=== PATIENT | female | born 1950 | race Caucasian/White ===

== ENCOUNTER 2018-05-29 15:32 | Emergency (ER) | payer OTHER ==
--- NOTE | 2018-05-29 15:33 | PDOC ---
History of Present Illness - General History Source: Patient Exam Limitations: No Limitations - History of Present Illness Initial Comments: 67 yo F w a pmh of Crohns on [place], HTN presents to the ER s/p falling down and hitting the back of her head and butt. She reports that she heard how when older people fall they need to come to the ED to make sure they are not bleeding in their head. She states that she was walking in to her house from the driveway when she tripped on a rock, fell backward and landed on her head. She admits to significant pain at the time of the event and states she heard a crack. She denies taking blood thinners or experiencing any LOC. She says she had no prodromal symptoms before the fall such as lightheadedness, palpitations , chest pain, SOB, or difficutly breathing. After the fall she took two 650 Mg tylenol pills orally for pain control. She denies recent fevers, chills, infections, headache, neck pain, blurry vision , chest pain, SOB, difficulty breathing, back pain, abdominal pain, diarrhea, constipation, numbness, tingling, weakness, dysuria, frequency, or urgency. PCP: Rory Simmons PSH: Appendectomy at age 6, Benign facial tumor removal Allergies: NKA, NKDA Social Hx: Denies smoking, drinking, or other substance usage. <Clayton Ivory - Last Filed: 05/29/18 17:15> <Inge Reis - Last Filed: 05/29/18 17:30> - General Chief Complaint: Injury Stated Complaint: FALL Time Seen by Provider: 05/29/18 15:32 Past History - Past Medical History Anemia: Yes Asthma: No Cancer: No Cardiac Disorders: No COPD: No CHF: No GI Disorders: Yes (BLEEDING ULCER 2013) HTN: Yes - Surgical History Abdominal Surgery: No Appendectomy: Yes Cardiac Surgery: No Lung Surgery: No Neurologic Surgery: No - Suicide/Smoking/Psychosocial Hx Smoking History: Current some day smoker Have you smoked in the past 12 months: Yes Number of Cigarettes Smoked Daily: 10 'Breaking Loose' booklet given: 01/22/16 Hx Alcohol Use: No Drug/Substance Use Hx: No Substance Use Type: None <Clayton Ivory - Last Filed: 05/29/18 17:15> <Inge Reis - Last Filed: 05/29/18 17:30> - Past Medical History Allergies/Adverse Reactions: Allergies Allergy/AdvReac Type Severity Reaction Status Date / Time No Known Drug Allergies Allergy Verified 05/29/18 15:44 Home Medications: Ambulatory Orders Omeprazole [Prilosec (RX)] 40 mg PO DAILY 01/03/14 Adalimumab [Humira] 0 mg SQ WEEKLY 05/29/18 Review of Systems - Review of Systems Able to Perform ROS?: Yes Comments:: CONSTITUTIONAL: Absent: fever, no chills, no fatigue EYES: Absent: visual changes ENT: Absent: ear pain, no sore throat CARDIOVASCULAR: Absent: chest pain, no palpitations RESPIRATORY: Absent: cough, no SOB GI: Absent: abdominal pain, no nausea, no vomiting, no constipation, no diarrhea GENITOURINARY: Absent: dysuria, no frequency, no hematuria MUSKULOSKELETAL: Absent: back pain, no arthralgia, no myalgia SKIN: Absent: rash NEURO: Absent: headache <Clayton Ivory - Last Filed: 05/29/18 17:15> *Physical Exam - Physical Exam Comments: GENERAL: Well-appearing, well-nourished. No apparent distress. HEENT: Mild 1 cm abrasion on occipital bone. Small hematoma, not TTP. No open wound. Normocephalic. PERRL, EOM intact. CARDIOVASCULAR: Normal S1, S2. Regular rate and rhythm. PULMONARY: No evidence of respiratory distress. Lungs clear to auscultation bilaterally. No wheezing, rales or rhonchi. ABDOMEN: Soft, non-distended, non-tender. EXTREMITIES: Normal ROM in all four extremities. No gross deformities. SKIN: Warm, dry. No rash NEUROLOGICAL: No focal neurological deficits. <Clayton Ivory - Last Filed: 05/29/18 17:15> - Vital Signs Last Vital Signs Temp Pulse Resp BP Pulse Ox 98.2 F 77 18 159/76 100 05/29/18 15:32 05/29/18 15:32 05/29/18 15:32 05/29/18 15:32 05/29/18 15:32 <Inge Reis - Last Filed: 05/29/18 17:30> Moderate Sedation - Procedure Monitoring Vital Signs: Procedure Monitoring Vital Signs Temperature 98.2 F 02/09/19 15:32 Pulse Rate 77 05/29/18 15:32 Respiratory Rate 18 05/29/18 15:32 Blood Pressure 159/76 05/29/18 15:32 O2 Sat by Pulse Oximetry (%) 100 05/29/18 15:32 <SmileyIngedora Muhammad - Last Filed: 05/29/18 17:30> ED Treatment Course - LABORATORY CBC & Chemistry Diagram: 05/29/18 16:10 05/29/18 16:10 <Clayton Ivory - Last Filed: 05/29/18 17:15> - LABORATORY CBC & Chemistry Diagram: 05/29/18 16:10 05/29/18 16:10 - RADIOLOGY Radiology Studies Ordered: Category Date Time Status CERVICAL SPINE CT W/O CONTR [CT] Stat CT Scan 05/29/18 15:[address] WITHOUT CONTRAST [CT] Stat CT Scan 05/29/18 15:35 Completed <Inge Reis - Last Filed: 05/29/18 17:30> Medical Decision Making - Medical Decision Making 67 yo F w a pmh of Crohns on [facility], HTN presents to the ER s/p falling down and hitting the back of her head and butt. She reports that she heard how when older people fall they need to come to the ED to make sure they are not bleeding in their head. She states that she was walking in to her house from the driveway when she tripped on a rock, fell backward and landed on her head. She admits to significant pain at the time of the event and states she heard a crack. She denies taking blood thinners or experiencing any LOC. She says she had no prodromal symptoms before the fall such as lightheadedness, palpitations , chest pain, SOB, or difficutly breathing. After the fall she took two 650 Mg tylenol pills orally for pain control. - VSS - No LOC, no blood thinners, appears to be a mechanical fall. DDx IBNLT: Subdural vs epidural vs SAH vs intracerebral hemorrhage, CVA/TIA, arrhythmia, syncope, ACS/WI, vertebral fx Plan: Cbc, bmp, Head/neck ct, lumb/sacral/pelvis X-rays, EKG, re-assess. EKG normal sinus, possible peaked T waves. CT and Xr showed no acute fractures or bleeds. Will DC patient with return precautions and PCP fu <Clayton Ivory - Last Filed: 05/29/18 17:15> - Medical Decision Making ECG NSR, normal segments and intervals. no ST or T wave segment abnormalities, see attestation. no symptoms and no electrolyte derangements to suggest pathology or electrolyte derangements. 05/29/18 17:29 <Inge Reis - Last Filed: 05/29/18 17:30> *DC/Admit/Observation/Transfer - Discharge Dispostion Decision to Admit order: No <CachorroClayton - Last Filed: 05/29/18 17:15> <Inge Reis - Last Filed: 05/29/18 17:30> Diagnosis at time of Disposition: Fall Contusion of scalp Qualifiers: Encounter type: initial encounter Qualified Code(s): S00.03XA - Contusion of scalp, initial encounter - Discharge Dispostion Disposition: HOME Condition at time of disposition: Improved - Referrals Referrals: Rory Carrillo MD [Primary Care Provider] - - Patient Instructions Printed Discharge Instructions: DI for Contusion, How to Prevent Falls, DI for Closed Head Injury Additional Instructions: FALL PREVENTION AT HOME WHAT YOU NEED TO KNOW There are many different factors that can increase your risk of falls. Falls can happen any time, but the majority of them occur in the home. Fall prevention includes ways to make your home and other areas safer. It also includes ways you can move more carefully to prevent a fall. Health conditions that cause changes in your blood pressure, vision, or muscle strength and coordination may increase your risk for falls. Medicines, including anesthesia, may increase your risk for falls if they make you dizzy, weak, or sleepy. FALL PREVENTION TIPS Stand or sit up slowly. This may help you keep your balance and prevent falls. Do not walk and talk at the same time. Concentrate on the task of walking and continue the conversation after you've reached a safe place. Wear shoes that fit well and have soles that switchboard clerk. Wear shoes both inside and outside. Use slippers with good switchboard clerk. Avoid shoes with high heels. Use assistive devices as directed. Your healthcare provider may suggest that you use a cane or walker to help you keep you balance. Be sure you have adequate lighting throughout your house. Keep paths clear. Remove books, shoes and other objects from walkways and stairs. Keep cords for telephones and lamps out of the way so you dont need to walk over them. Remove small rugs or secure them with double-sided tape. This will prevent you from tripping. Use a nightlight when getting out of bed at night. Stay active to maintain overall strength and endurance. Know your limitations. If there is a task you can not complete with ease, do not risk a fall by trying to complete it. Call 911 or have someone else call if: You have fallen and are unconscious You have fallen and cannot move part of your body Contact your healthcare provider if: You have fallen and have pain or a headache You have questions or concerns about your condition or care. Print Language: FRENCH - Post Discharge Activity
--- NOTE | 2018-05-29 15:34 | PDOC ---
Attending Attestation - Resident Resident Name: Clayton Ivory - ED Attending Attestation I have performed the following: I have examined & evaluated the patient, The case was reviewed & discussed with the resident, I agree w/resident's findings & plan - HPI HPI: 05/29/18 16:26 67 yo F w a pmh of Crohns on [place], HTN presents to the ER s/p falling down and hitting the back of her head and butt s/p trip and fall over rock when she was coming down the driveway. no LOC, mild headache initially. no gait changes, vomiting, visual or hearing changes or confusion. also notes lower back pain at the tailbone where she landed. - Physicial Exam PE: 05/29/18 17:25 General: GCS 15 NAD, well appearing HEENT: +occipital scalp hematoma, superficial abrasion, nonbleeding. PERRL, EOMI. Dentition intact. nasal bridge stable. Neck: neck supple, no midline C spine tenderness or deformity, ROM intact. No anterior mass or crepitus, trachea midline. Resp: Lungs clear bilaterally Chest: no clavicle or chest wall tenderness or crepitus CVS: RRR, 2+ pulses throughout. Abdomen: Abdomen soft, nontender, nondistended. Back: Back nontender, no midline spinal tenderness along cervical/thoracic/ lumbar spine, FROM, no stepoffs. MSK: Pelvis stable, Extremities symmetric, no focal areas of tenderness or deformities, proximal and distally; no pain on axial loading. FROM in all extrem. +left lateral buttock TTP without ecchymosis or hematoma or discoloration. Neuro: Alert, oriented appropriately. CN II-XII grossly symmetric and intact. no focal neuro deficits. Sensation and strength intact throughout. Gait normal/ stable. Skin: intact, normal color and well perfused. - Medical Decision Making 05/29/18 17:26 hpi as documented, VS wnl, reviewed. Trauma ddx: ICH, SDH, EDH, C spine injury/fx, pelvis fracture. MSK contusion. , scalp contusion/hematoma. lumbosacral fx/compression fx. tailbone fx. buttock contusion; Intra abdominal and thoracic injuries, bleed - doubt clinically based on history and physical. no syncope. no cp or sob or dizziness or neuro changes. CT head neg for acute pathology/bleed CT c spine with neg fx/subluxation. degenerative changes noted ECG NSR, no arrhythmia or ischemia. normal sinus rhythm. labs and lytes normal no prodromal sx to suggest pathology or precipitating factors. Xray neg for acute fx, with good alignment of lumbosacral spine and coccyx. supportive care, otc analgesia prn. fall safety precautions discussed. Pt to be discharged in stable condition. Patient and family made aware of impression and plan, return precautions discussed (including but not limited to worsening pain or symptoms), fevers, or signs of infection, chest pain, respiratory distress, inability to tolerate oral intake, dehydration, syncope, or neurologic changes). Follow up with PMD as recommended, follow up information provided, take medications as instructed for duration of time. continue with supportive care, avoid triggers and precipitants. Patient does not suffer from an acute life-threatening medical condition at this time she is safe for outpatient follow-up. 05/29/18 17:30 Heart Score/ECG Review - ECG Impressions Normal ECG: Yes Comment:: 05/29/18 17:30 EKG normal sinus rhythm, no interval abnormalities, narrow QRS, ST and T wave segments and morphology normal.
[2018-05-29 15:55] VITALS: BP 159/76; PULSE 77; TEMP 98.2; BMI 25.7
[2018-05-29] MEDS ORDERED: ACETAMINOPHEN 325 MG TABLET (FP) PO ONE (16:26)
[2018-05-29 16:29] LABS: BASO % 0.2 % (0-2.0); EOS % 2.9 % (0-4.5); HEMATOCRIT 39.5 % (32.4-45.2); HEMOGLOBIN 12.5 GM/dl (10.7-15.3); LYMPH % 17.1 % (8-40); MCH 27.1 pg (25.7-33.7); MCHC 31.6 g/dl (32.0-36.0); MEAN CELL VOLUME 85.9 fl (80-96); MEAN PLT VOLUME 7.5 fl (7.5-11.1); MONO % 4.4 % (3.8-10.2); NEUT % 75.4 % (42.8-82.8); PLATELET COUNT 375 K/MM3 (134-434); RDW 14.2 % (11.6-15.6); WHITE BLOOD COUNT 9.8 K/mm3 (4.0-10.8)
[2018-05-29 16:33] LABS: ANION GAP 9 MMOL/L (8-16); BLOOD UREA NITROGEN 47 mg/dl (7-18); CHLORIDE 105 mmol/L (98-107); CO2 22 mmol/L (21-32); CREATININE 1.3 mg/dl (0.55-1.3); GLUCOSE,RANDOM 117 mg/dl (74-106); SODIUM 136 mmol/L (136-145)
[2018-05-29] MEDS ORDERED: ACETAMINOPHEN 325 MG TABLET (FP) ONE (16:43)
--- NOTE | 2018-05-30 09:28 | EKG ---
Test Reason : Blood Pressure : / mmHG Vent. Rate : 094 BPM Atrial Rate : 094 BPM P-R Int : 134 ms QRS Dur : 090 ms QT Int : 346 ms P-R-T Axes : 048 008 048 degrees QTc Int : 432 ms NORMAL SINUS RHYTHM NORMAL ECG Confirmed by Papa Shook MD ([id number]) on 05/30/2018 9:28:38 AM Referred By: Confirmed By:Papa Shook MD
== END 2018-05-29 17:19 | disposition home or self-care (01) ==
LOC: FER 15:32
DX: S00.03XA Contusion of scalp, initial encounter (principal); W01.0XXA Fall on same level from slipping, tripping and stumbling without subsequent striking against object, initial encounter; Y93.89 Activity, other specified; Y92.008 Other place in unspecified non-institutional (private) residence as the place of occurrence of the external cause; I10 Essential (primary) hypertension; K50.90 Crohn's disease, unspecified, without complications
CPT/HCPCS: 36415; 70450-TC; 72100-TC-FY; 72125-TC; 72170-TC-FY; 72220-TC-FY; 80048; 85025; 93005; 99282-25

== ENCOUNTER 2018-12-23 07:35 | Day surgery (SDC) | payer OTHER ==
[2018-12-23] MEDS ORDERED: diphenhydrAMINE HCL 25 MG CAPSULE (FP) PO ONE ×2 (08:01→09:00)
[2018-12-23] MEDS ORDERED: ACETAMINOPHEN 500 MG TABLET (FP) ONE (08:02)
[2018-12-23] MEDS ORDERED: ACETAMINOPHEN 500 MG TABLET (FP) PO ONE (09:00)
[2018-12-23] MEDS ORDERED: SODIUM CHLORIDE IVPB ONE (09:30)
[2018-12-23] MEDS ORDERED: INFLIXIMAB IVPB ONE (09:30)
[2018-12-23 13:12] VITALS: BP 136/74; PULSE 82; TEMP 97.8
== END 2018-12-23 12:50 | disposition home or self-care (01) ==
LOC: JCHEMO 07:35
PROVIDERS: ATTEND Internal Medicine Gastroenterology
DX: K50.90 Crohn's disease, unspecified, without complications (principal)
CPT/HCPCS: 96413; 96415; J1745

== ENCOUNTER 2019-01-10 09:02 | Day surgery (SDC) | payer OTHER ==
[~2019-01-10 09:02] MED LIST: ACETAMINOPHEN 500 MG TABLET (FP) PO ONE; SODIUM CHLORIDE 250 ML IV ONE; diphenhydrAMINE HCL 25 MG CAPSULE (FP) PO ONE
[2019-01-10] MEDS ORDERED: INFLIXIMAB IVPB ONE (09:30)
[2019-01-10] MEDS ORDERED: SODIUM CHLORIDE IVPB ONE (09:30)
[2019-01-10] MEDS ORDERED: diphenhydrAMINE HCL 25 MG CAPSULE (FP) PO ONE (09:48)
[2019-01-10] MEDS ORDERED: ACETAMINOPHEN 500 MG TABLET (FP) ONE (09:49)
[2019-01-10 14:06] VITALS: BP 152/85; PULSE 91; TEMP 98.4
== END 2019-01-10 13:35 | disposition home or self-care (01) ==
LOC: JCHEMO 09:02
PROVIDERS: ATTEND Internal Medicine Gastroenterology
DX: K50.90 Crohn's disease, unspecified, without complications (principal)
CPT/HCPCS: 96413; 96415; J1745

== ENCOUNTER 2019-01-31 07:07 | Day surgery (SDC) | payer OTHER ==
[2019-01-31] MEDS ORDERED: ACETAMINOPHEN 500 MG TABLET (FP) ONE ×2 (07:55→07:58)
[2019-01-31] MEDS ORDERED: diphenhydrAMINE HCL 25 MG CAPSULE (FP) PO ONE ×2 (07:55→08:30)
[2019-01-31] MEDS ORDERED: ACETAMINOPHEN 325 MG TABLET (FP) PO ONE (08:30)
[2019-01-31] MEDS ORDERED: SODIUM CHLORIDE IVPB ONE (09:30)
[2019-01-31] MEDS ORDERED: INFLIXIMAB IVPB ONE (09:30)
[2019-01-31 16:28] VITALS: BP 150/64; PULSE 81; TEMP 97.9
== END 2019-01-31 12:20 | disposition home or self-care (01) ==
LOC: JCHEMO 07:07
PROVIDERS: ATTEND Internal Medicine Gastroenterology
DX: K50.90 Crohn's disease, unspecified, without complications (principal)
CPT/HCPCS: 96413; 96415; J1745

== ENCOUNTER 2019-04-04 07:07 | Day surgery (SDC) | payer OTHER ==
[2019-04-04] MEDS ORDERED: diphenhydrAMINE HCL 25 MG CAPSULE (FP) PO ONE (07:51)
[2019-04-04] MEDS ORDERED: ACETAMINOPHEN 500 MG TABLET (FP) ONE (07:52)
[2019-04-04] MEDS ORDERED: ACETAMINOPHEN 500 MG TABLET (FP) PO ONE (08:00)
[2019-04-04] MEDS ORDERED: diphenhydrAMINE HCL 50 MG CAPSULE PO ONE (08:00)
[2019-04-04] MEDS ORDERED: SODIUM CHLORIDE IVPB ONE (09:00)
[2019-04-04] MEDS ORDERED: INFLIXIMAB IVPB ONE (09:00)
[2019-04-04 10:35] VITALS: TEMP 98.3
[2019-04-04 12:14] VITALS: BP 152/77; PULSE 81
== END 2019-04-04 12:11 | disposition home or self-care (01) ==
LOC: JCHEMO 07:07
PROVIDERS: ATTEND Internal Medicine Gastroenterology
DX: K50.90 Crohn's disease, unspecified, without complications (principal)
CPT/HCPCS: 96413; 96415; J1745

== ENCOUNTER 2019-05-30 10:14 | Day surgery (SDC) | payer OTHER ==
[2019-05-30] MEDS ORDERED: SODIUM CHLORIDE 250 ML IV ONE (11:15)
[2019-05-30] MEDS ORDERED: diphenhydrAMINE HCL 25 MG CAPSULE (FP) PO ONE (11:30)
[2019-05-30] MEDS ORDERED: ACETAMINOPHEN 500 MG TABLET (FP) PO ONE (11:30)
[2019-05-30] MEDS ORDERED: SODIUM CHLORIDE IVPB ONE (12:00)
[2019-05-30] MEDS ORDERED: INFLIXIMAB IVPB ONE (12:00)
[2019-05-30 14:57] VITALS: BP 148/57; PULSE 74; TEMP 98.1
== END 2019-05-30 14:58 | disposition home or self-care (01) ==
LOC: JCHEMO 10:14 → J7W 10:15 → JCHEMO 14:58
PROVIDERS: ATTEND Internal Medicine Gastroenterology
DX: K50.90 Crohn's disease, unspecified, without complications (principal)
CPT/HCPCS: 96413; 96415; J1745

== ENCOUNTER 2021-06-05 16:58 | Inpatient (IN) | payer OTHER ==
[2021-06-05 19:20] LABS: BASO % 1.1 % (0-2.0); EOS % 2.6 % (0-4.5); HEMOGLOBIN 10.8 GM/dL (10.7-15.3); LYMPH % 16.2 % (8-40); MCH 27.5 pg (25.7-33.7); MCHC 33.7 g/dl (32.0-36.0); MEAN CELL VOLUME 81.8 fl (80-96); MEAN PLT VOLUME 6.5 fl (7.5-11.1); MONO % 5.9 % (3.8-10.2); NEUT % 74.2 % (42.8-82.8); PLATELET COUNT 377 10^3/uL (134-434); RBC 3.91 M/mm3 (3.60-5.2); RDW 15.9 % (11.6-15.6); WHITE BLOOD COUNT 10.1 K/mm3 (4.0-10.0)
[2021-06-05 19:28] LABS: INR 1.02 (0.83-1.09); PROTHROMBIN TIME (PATIENT) 11.7 SEC (9.7-13.0)
[2021-06-05 19:30] LABS: ACTIVATED PTT 30.8 SECONDS (25.2-36.5)
[2021-06-05] MEDS ORDERED: ACETAMINOPHEN 1000 MG/100 ML BAG IVPB ONE (21:33)
[2021-06-05] MEDS ORDERED: ACETAMINOPHEN INJECTION 100 ML IVPB ONE (21:35)
[2021-06-05 22:30] LABS: ANION GAP 7 MMOL/L (8-16); BLOOD UREA NITROGEN 14.9 mg/dL (7-18); CALCIUM 9.8 mg/dL (8.5-10.1); CHLORIDE 108 mmol/L (98-107); CO2 26 mmol/L (21-32); CREATININE 0.8 mg/dL (0.55-1.3); GLUCOSE,RANDOM 87 mg/dL (74-106); SODIUM 141 mmol/L (136-145)
[2021-06-05 22:31] LABS: ALBUMIN 2.9 g/dl (3.4-5.0); ALK PHOS 81 U/L (45-117); BILIRUBIN,TOTAL 0.2 mg/dL (0.2-1); MAGNESIUM 1.6 mg/dL (1.8-2.4); SGOT/AST 13 U/L (15-37); SGPT/ALT 11 U/L (13-61); TOT PROT 7.1 g/dl (6.4-8.2)
[2021-06-05] MEDS ORDERED: POTASSIUM CHLORIDE TABS 20 MEQ TABLET.ER (FP) PO ONE ×2 (22:33→22:40)
[2021-06-05] MEDS ORDERED: MAGNESIUM SULF 50% (8.12 MEQ/2 ML-1 GM VIAL) IVPB ONE (22:33)
[2021-06-05] MEDS ORDERED: MAGNESIUM SULFATE IN WATER 2 GM/50 ML IVPB IVPB ONE (22:40)
[2021-06-06] MEDS ORDERED: KCL 10 MEQ IVPB 30 MEQ/300 ML INFUS.BAG IVPB ONE (01:50)
[2021-06-06] MEDS: KCL 10 MEQ IVPB 10 MEQ/100 ML INFUS.BAG IVPB SCH ×3 (02:10→04:18)
[2021-06-06] MEDS ORDERED: HEPARIN NA (PORCINE) 5,000 UNITS/ML 1ML VIAL SQ ONE (02:26)
[2021-06-06] MEDS ORDERED: LACTATED RINGERS SOLUTION 1,000 ML with POTASSIUM CHLORIDE 20 MEQ IV ONE (02:33)
[2021-06-06 06:00] VITALS: BMI 24.4
[2021-06-06] MEDS: HEPARIN NA (PORCINE) 5,000 UNITS/ML 1ML VIAL SQ SCH ×3 (06:46→22:44)
[2021-06-06 08:57] LABS: BASO % 1.1 % (0-2.0); EOS % 4.1 % (0-4.5); HEMATOCRIT 32.2 % (32.4-45.2); HEMOGLOBIN 10.5 GM/dL (10.7-15.3); LYMPH % 22.8 % (8-40); MCH 27.1 pg (25.7-33.7); MCHC 32.5 g/dl (32.0-36.0); MEAN CELL VOLUME 83.4 fl (80-96); MEAN PLT VOLUME 6.8 fl (7.5-11.1); MONO % 5.8 % (3.8-10.2); NEUT % 66.2 % (42.8-82.8); PLATELET COUNT 344 10^3/uL (134-434); RBC 3.86 M/mm3 (3.60-5.2); WHITE BLOOD COUNT 7.2 K/mm3 (4.0-10.0)
[2021-06-06 09:15] LABS: CALCIUM 9.1 mg/dL (8.5-10.1)
[2021-06-06 09:16] LABS: ALBUMIN 2.6 g/dl (3.4-5.0); MAGNESIUM 2.4 mg/dL (1.8-2.4)
[2021-06-06 09:19] LABS: CREATININE 0.7 mg/dL (0.55-1.3)
[2021-06-06 09:20] LABS: BILIRUBIN,TOTAL 0.2 mg/dL (0.2-1)
[2021-06-06 09:21] LABS: TOT PROT 6.6 g/dl (6.4-8.2)
[2021-06-06] MEDS ORDERED: LOSARTAN POTASSIUM 50 MG TABLET PO SCH (10:00)
[2021-06-06] MEDS ORDERED: MAGNESIUM 1GM/D5W - 1 GM/100 ML IVPB IVPB ONE (10:00)
[2021-06-06] MEDS ORDERED: POTASSIUM CHLORIDE ORAL LIQUID 20 MEQ/15 ML PO SCH (10:00)
[2021-06-06] MEDS ORDERED: MIDAZOLAM HCL 2 MG/2 ML SINGLE DOSE VIAL ONE (14:54)
[2021-06-06 14:55] LABS: URINE APPEARANCE CLEAR; URINE BILIRUBIN NEGATIVE (NEGATIVE); URINE COLOR YELLOW; URINE GLUCOSE (UA) NEGATIVE (NEGATIVE); URINE KETONE NEGATIVE (NEGATIVE); URINE LEUK ESTERASE NEGATIVE (NEGATIVE); URINE NITRITE NEGATIVE (NEGATIVE); URINE PROTEIN NEGATIVE (NEGATIVE); URINE UROBILINOGEN 0.2 mg/dL (0.2-1.0)
[2021-06-06] MEDS ORDERED: HEPARIN NA (PORCINE) 5,000 UNITS/ML 1ML VIAL ONE (15:27)
[2021-06-06] MEDS ORDERED: LIDOCAINE HCL 1%, 10 MG/ML (20ML VIAL) ONE (15:27)
[2021-06-06] MEDS ORDERED: ceFAZolin SODIUM 1 GM VIAL IVPB ONE (15:55)
[2021-06-06] MEDS ORDERED: ceFAZolin SODIUM 1 GM VIAL ONE (16:02)
[2021-06-06] MEDS ORDERED: LIDOCAINE HCL 1%, 10 MG/ML (20ML VIAL) SQ ONE (16:03)
[2021-06-06] MEDS ORDERED: hydrALAZINE HCL 20 MG/ML VIAL ONE (17:00)
[2021-06-06] MEDS ORDERED: ONDANSETRON 4 MG/2 ML VIAL IVPUSH PRN (17:12)
[2021-06-06] MEDS ORDERED: hydrALAZINE HCL 20 MG/ML VIAL IVPUSH ONE ×2 (17:12→17:13)
[2021-06-06] MEDS ORDERED: PROMETHAZINE HCL 25 MG/1 ML VIAL IVPUSH PRN (17:12)
[2021-06-06] MEDS ORDERED: METOPROLOL TARTRATE 5 MG/5 ML VIAL IVPUSH ONE (17:13)
[2021-06-06] MEDS ORDERED: LACTATED RINGERS SOLUTION 1,000 ML IV SCH (17:15)
[2021-06-06] MEDS: CLOPIDOGREL BISULFATE 75 MG TABLET (FP) PO SCH (18:10)
[2021-06-06] MEDS ORDERED: CLOPIDOGREL BISULFATE 75 MG TABLET (FP) ONE (18:12)
[2021-06-06] MEDS ORDERED: PARoxetine HCL 10 MG TABLET PO SCH ×2 (22:00)
[2021-06-06] MEDS ORDERED: ACETAMINOPHEN 325 MG TABLET (FP) PO PRN (22:01)
[2021-06-07] MEDS: HEPARIN NA (PORCINE) 5,000 UNITS/ML 1ML VIAL SQ SCH (06:47)
[2021-06-07 06:59] VITALS: BP 169/67; PULSE 80; TEMP 98.1
[2021-06-07] MEDS: POTASSIUM CHLORIDE ORAL LIQUID 20 MEQ/15 ML PO SCH ×2 (09:52→10:05)
[2021-06-07] MEDS: CLOPIDOGREL BISULFATE 75 MG TABLET (FP) PO SCH (09:52)
[2021-06-07] MEDS ORDERED: LOSARTAN POTASSIUM 50 MG TABLET PO SCH (10:00)
[2021-06-07] MEDS ORDERED: predniSONE 5 MG TABLET (UD) PO SCH (10:00)
== END 2021-06-07 12:15 | disposition home or self-care (01) | DRG 272 ==
LOC: JER 16:58 → JERBED 23:17 → J8W 06-06 05:05
PROVIDERS: ADMIT Internal Medicine; ATTEND Nurse Practitioner Family
PROC: 047M341 Dilation of Right Popliteal Artery with Drug-eluting Intraluminal Device, using Drug-Coated Balloon, Percutaneous Approach (ICD-10-PCS; 2021-06-06)
PROC: 3E05317 Introduction of Other Thrombolytic into Peripheral Artery, Percutaneous Approach (ICD-10-PCS; 2021-06-06)
PROC: B40DYZZ Plain Radiography of Aorta and Bilateral Lower Extremity Arteries using Other Contrast (ICD-10-PCS; 2021-06-06)
PROC: 04CM3ZZ Extirpation of Matter from Right Popliteal Artery, Percutaneous Approach (ICD-10-PCS; principal; 2021-06-06 17:45)
DX: I73.9 Peripheral vascular disease, unspecified (principal); D72.829 Elevated white blood cell count, unspecified; M79.671 Pain in right foot; E87.6 Hypokalemia; E83.42 Hypomagnesemia; I10 Essential (primary) hypertension; E78.5 Hyperlipidemia, unspecified
CPT/HCPCS: 36415; 76000-TC-FY; 80053; 81003; 82436; 82550; 83735; 84100; 84133; 84300; 84484; 85025; 85610; 85730; 87086; 93005; 93010; 94760; 99285-25; C9803; J1644; U0003; U0005

== ENCOUNTER 2021-07-12 05:30 | Day surgery (SDC) | payer OTHER ==
[2021-07-08 11:52] VITALS: BMI 23.0
[2021-07-12] MEDS ORDERED: DEXAMETHASONE SOD PHOSPHATE 10 MG/1 ML VIAL ONE (07:47)
[2021-07-12] MEDS ORDERED: LIDOCAINE HCL/PF 1% SDV 5ML VIAL ONE (07:47)
[2021-07-12] MEDS ORDERED: IOHEXOL 180 MG/1 ML ML IJ ONE (13:07)
[2021-07-12] MEDS ORDERED: LIDOCAINE HCL 1% PRESERVATIVE FREE - 30ML VIAL IJ ONE ×2 (13:07→13:19)
[2021-07-12] MEDS ORDERED: DEXAMETHASONE SOD PHOSPHATE 10 MG/1 ML VIAL IVPUSH ONE ×2 (13:08→13:19)
[2021-07-12 13:52] VITALS: TEMP 98.6
[2021-07-12 14:10] VITALS: BP 160/70; PULSE 80
== END 2021-07-12 14:00 | disposition home or self-care (01) ==
LOC: JASU-SURG 05:30
PROVIDERS: ATTEND Pain Medicine Pain Medicine
PROC: 3E0R3BZ Introduction of Anesthetic Agent into Spinal Canal, Percutaneous Approach (ICD-10-PCS; principal; 2021-07-12 13:00)
DX: M54.16 Radiculopathy, lumbar region (principal); I10 Essential (primary) hypertension
CPT/HCPCS: 76000-TC-FY; J1100

== ENCOUNTER 2021-08-20 04:29 | Day surgery (SDC) | payer OTHER ==
[2021-08-19 11:34] VITALS: BMI 22.2
[2021-08-20] MEDS ORDERED: LIDOCAINE HCL/PF 1% SDV 5ML VIAL ONE ×2 (07:40→11:55)
[2021-08-20 10:49] VITALS: TEMP 97.7
[2021-08-20] MEDS ORDERED: DEXAMETHASONE SOD PHOSPHATE 10 MG/1 ML VIAL ONE (11:56)
[2021-08-20 12:49] VITALS: BP 174/81; PULSE 79
== END 2021-08-20 12:49 | disposition home or self-care (01) ==
LOC: JASU-SURG 04:29
PROVIDERS: ATTEND Pain Medicine Pain Medicine
DX: Z53.8 Procedure and treatment not carried out for other reasons (principal)
CPT/HCPCS: J1100

== ENCOUNTER 2021-08-21 19:38 | Observation (INO) | payer OTHER ==
[2021-08-21] MEDS ORDERED: LABETALOL HCL 5 MG/1 ML (100MG/20 ML VIAL) IVPUSH ONE (20:31)
[2021-08-21 21:50] LABS: BASO % 1.1 % (0-2.0); EOS % 2.8 % (0-4.5); HEMATOCRIT 32.2 % (32.4-45.2); HEMOGLOBIN 10.5 GM/dL (10.7-15.3); LYMPH % 14.3 % (8-40); MCH 24.4 pg (25.7-33.7); MCHC 32.7 g/dl (32.0-36.0); MEAN CELL VOLUME 74.5 fl (80-96); MEAN PLT VOLUME 6.4 fl (7.5-11.1); MONO % 5.3 % (3.8-10.2); NEUT % 76.5 % (42.8-82.8); PLATELET COUNT 416 10^3/uL (134-434); RBC 4.32 M/mm3 (3.60-5.2); RDW 15.1 % (11.6-15.6); WHITE BLOOD COUNT 7.8 K/mm3 (4.0-10.0)
[2021-08-21 21:55] LABS: BLOOD UREA NITROGEN 12.2 mg/dL (7-18); CALCIUM 9.9 mg/dL (8.5-10.1)
[2021-08-21 21:58] LABS: CREATININE 0.9 mg/dL (0.55-1.3)
[2021-08-21 22:00] LABS: BILIRUBIN,TOTAL 0.2 mg/dL (0.2-1); TOT PROT 7.1 g/dl (6.4-8.2)
[2021-08-22] MEDS ORDERED: POTASSIUM CHLORIDE TABS 20 MEQ TABLET.ER (FP) PO ONE ×2 (02:08→02:33)
[2021-08-22] MEDS ORDERED: amLODIPine BESYLATE 5 MG TABLET (FP) PO SCH ×2 (03:28→10:00)
[2021-08-22 04:58] VITALS: BMI 20.7
[2021-08-22 09:33] LABS: BASO % 0.9 % (0-2.0); EOS % 1.8 % (0-4.5); HEMATOCRIT 31.9 % (32.4-45.2); HEMOGLOBIN 10.1 GM/dL (10.7-15.3); LYMPH % 11.5 % (8-40); MCH 23.6 pg (25.7-33.7); MCHC 31.5 g/dl (32.0-36.0); MEAN PLT VOLUME 6.7 fl (7.5-11.1); MONO % 4.4 % (3.8-10.2); NEUT % 81.4 % (42.8-82.8); PLATELET COUNT 410 10^3/uL (134-434); RBC 4.26 M/mm3 (3.60-5.2)
[2021-08-22 09:54] LABS: ALBUMIN 2.7 g/dl (3.4-5.0); BLOOD UREA NITROGEN 12.7 mg/dL (7-18); CALCIUM 9.2 mg/dL (8.5-10.1)
[2021-08-22 09:57] LABS: CREATININE 0.8 mg/dL (0.55-1.3)
[2021-08-22 09:59] LABS: BILIRUBIN,TOTAL 0.3 mg/dL (0.2-1); TOT PROT 6.6 g/dl (6.4-8.2)
[2021-08-22] MEDS ORDERED: LOSARTAN POTASSIUM 50 MG TABLET PO SCH ×2 (10:00)
[2021-08-22] MEDS ORDERED: POTASSIUM CHLORIDE ORAL LIQUID 20 MEQ/15 ML PO SCH (10:00)
[2021-08-22] MEDS ORDERED: ENOXAPARIN NA (PORCINE) 40 MG/0.4 ML DISP.SYRIN SQ SCH (10:00)
[2021-08-22] MEDS ORDERED: CLOPIDOGREL BISULFATE 75 MG TABLET (FP) PO SCH (10:00)
[2021-08-22 12:40] VITALS: BP 150/61; PULSE 74
[2021-08-22 13:46] VITALS: TEMP 99.4
== END 2021-08-22 14:33 | disposition home or self-care (01) ==
LOC: JER 19:38 → JERBED 08-22 01:54 → J4S 08-22 04:44
PROVIDERS: ADMIT Hospitalist; ATTEND Internal Medicine
PROC: 3E023GC Introduction of Other Therapeutic Substance into Muscle, Percutaneous Approach (ICD-10-PCS; principal; 2021-08-22)
PROC: 3E033GC Introduction of Other Therapeutic Substance into Peripheral Vein, Percutaneous Approach (ICD-10-PCS; 2021-08-22)
DX: I16.0 Hypertensive urgency (principal); E87.6 Hypokalemia; E78.5 Hyperlipidemia, unspecified; K50.90 Crohn's disease, unspecified, without complications; G89.29 Other chronic pain; K25.4 Chronic or unspecified gastric ulcer with hemorrhage; M54.50 Low back pain, unspecified; I73.9 Peripheral vascular disease, unspecified; I74.9 Embolism and thrombosis of unspecified artery; Z95.5 Presence of coronary angioplasty implant and graft; Z29.8 Encounter for other specified prophylactic measures
CPT/HCPCS: 36415; 70450-TC; 71046-TC-FY; 71275-TC; 74174-TC; 80053; 83605; 83690; 83735; 84443; 84484; 85025; 93005; 93010; 96372; 96374; 99285-25; C9803-CS; G0378; U0003; U0005

== ENCOUNTER 2022-09-12 04:02 | Day surgery (SDC) | payer OTHER ==
[2022-09-09 17:06] VITALS: BMI 27.0
[~2022-09-12 04:02] MED LIST changes: -ACETAMINOPHEN 500 MG TABLET (FP) PO ONE; +HEPARIN NA (PORCINE) 5,000 UNITS/ML 1ML VIAL SQ ONE; +LIDOCAINE HCL 1%, 10 MG/ML (20ML VIAL) NR ONE; -SODIUM CHLORIDE 250 ML IV ONE; -diphenhydrAMINE HCL 25 MG CAPSULE (FP) PO ONE
[2022-09-12] MEDS ORDERED: LIDOCAINE HCL 1%, 10 MG/ML (10ML VIAL) MDV ONE (09:27)
[2022-09-12] MEDS ORDERED: HEPARIN NA (PORCINE) 5,000 UNITS/ML 1ML VIAL ONE ×2 (09:27→09:37)
[2022-09-12] MEDS ORDERED: MIDAZOLAM HCL 2 MG/2 ML SINGLE DOSE VIAL ONE (10:51)
[2022-09-12] MEDS ORDERED: ceFAZolin SODIUM 1 GM VIAL IVPB ONE (11:12)
[2022-09-12] MEDS ORDERED: LIDOCAINE HCL 1%, 10 MG/ML (20ML VIAL) NR ONE (11:13)
[2022-09-12] MEDS ORDERED: HEPARIN NA (PORCINE) 5,000 UNITS/ML 1ML VIAL SQ ONE (11:17)
[2022-09-12] MEDS ORDERED: ONDANSETRON 4 MG/2 ML VIAL IVPUSH PRN (11:51)
[2022-09-12 16:34] VITALS: RESP 20; TEMP 98.7
[2022-09-12 16:41] VITALS: BP 127/57; PULSE 70
== END 2022-09-12 14:20 | disposition home or self-care (01) ==
LOC: JASU-SURG 04:02
PROVIDERS: ATTEND Surgery Vascular Surgery
PROC: 047M3Z1 Dilation of Right Popliteal Artery using Drug-Coated Balloon, Percutaneous Approach (ICD-10-PCS; principal; 2022-09-12 10:15)
DX: T82.856A Stenosis of peripheral vascular stent, initial encounter (principal); I73.9 Peripheral vascular disease, unspecified; L97.519 Non-pressure chronic ulcer of other part of right foot with unspecified severity
CPT/HCPCS: 37184; 37225; C1757; C2623; 76000-TC-FY; 94760; C1769; J1644

== ENCOUNTER 2023-01-30 04:28 | Day surgery (SDC) | payer OTHER ==
[2023-01-28 13:47] VITALS: BMI 29.2
[2023-01-30] MEDS ORDERED: LIDOCAINE HCL/PF 1% SDV 5ML VIAL ONE (07:14)
[2023-01-30] MEDS ORDERED: DEXAMETHASONE SOD PHOSPHATE 10 MG/1 ML VIAL ONE (07:14)
[2023-01-30] MEDS ORDERED: DEXAMETHASONE SOD PHOSPHATE 10 MG/1 ML VIAL IM ONE (08:03)
[2023-01-30] MEDS ORDERED: IOHEXOL 180 MG/1 ML ML IT ONE (11:14)
[2023-01-30] MEDS ORDERED: LIDOCAINE 1% P/F 10 MG/ML VIAL INF ONE (11:15)
[2023-01-30] MEDS ORDERED: ACETAMINOPHEN 500 MG TABLET (FP) PO PRN (11:16)
[2023-01-30 11:36] VITALS: RESP 18; TEMP 97.6
[2023-01-30 12:08] VITALS: BP 149/65; PULSE 72
== END 2023-01-30 11:50 | disposition home or self-care (01) ==
LOC: JASU-SURG 04:28
PROVIDERS: ATTEND Pain Medicine Pain Medicine
PROC: 3E0R3BZ Introduction of Anesthetic Agent into Spinal Canal, Percutaneous Approach (ICD-10-PCS; 2023-01-30)
PROC: 3E0R33Z Introduction of Anti-inflammatory into Spinal Canal, Percutaneous Approach (ICD-10-PCS; principal; 2023-01-30 10:45)
DX: M54.16 Radiculopathy, lumbar region (principal)
CPT/HCPCS: 76000-TC-FY; J1100

== ENCOUNTER 2023-02-26 04:15 | Day surgery (SDC) | payer OTHER ==
[2023-02-11 15:04] VITALS: BMI 29.2
[2023-02-26] MEDS ORDERED: HEPARIN NA (PORCINE) 5,000 UNITS/ML 1ML VIAL ONE (07:14)
[2023-02-26] MEDS ORDERED: LIDOCAINE HCL 1%, 10 MG/ML (20ML VIAL) ONE (07:14)
[2023-02-26] MEDS ORDERED: PROMETHAZINE HCL 25 MG/1 ML VIAL IVPB PRN (07:48)
[2023-02-26] MEDS ORDERED: oxyCODONE HCL 5 MG TABLET PO PRN ×2 (07:48)
[2023-02-26] MEDS ORDERED: ONDANSETRON 4 MG/2 ML VIAL IVPUSH PRN (07:48)
[2023-02-26] MEDS ORDERED: ACETAMINOPHEN 1000 MG/100 ML BAG IVPB PRN (07:48)
[2023-02-26] MEDS ORDERED: FENTANYL CITRATE/PF 50 MCG/ML VIAL ONE (07:56)
[2023-02-26] MEDS ORDERED: PROPOFOL 40 ML ONE (07:56)
[2023-02-26] MEDS ORDERED: MIDAZOLAM HCL 2 MG/2 ML SINGLE DOSE VIAL ONE (07:56)
[2023-02-26] MEDS ORDERED: LACTATED RINGERS SOLUTION 1,000 ML IV SCH (08:00)
[2023-02-26] MEDS ORDERED: LIDOCAINE HCL 1%, 10 MG/ML (20ML VIAL) INF ONE ×2 (08:04)
[2023-02-26] MEDS ORDERED: HEPARIN NA (PORCINE) 5,000 UNITS/ML 1ML VIAL SQ ONE (08:04)
[2023-02-26] MEDS ORDERED: IOVERSOL 320 MG/ML ML IV ONE (08:04)
[2023-02-26] MEDS ORDERED: LIDOCAINE HCL/PF 2% SDV 5ML VIAL ONE (08:11)
[2023-02-26] MEDS ORDERED: ceFAZolin SODIUM 1 GM VIAL ONE (08:14)
[2023-02-26] MEDS ORDERED: ACETAMINOPHEN INJECTION 100 ML IVPB ONE (10:15)
[2023-02-26 11:20] VITALS: RESP 16
[2023-02-26 12:01] VITALS: BP 106/68; PULSE 70; TEMP 97.1
== END 2023-02-26 12:00 | disposition home or self-care (01) ==
LOC: JASU-SURG 04:15
PROVIDERS: ATTEND Surgery Vascular Surgery
PROC: 04CM3ZZ Extirpation of Matter from Right Popliteal Artery, Percutaneous Approach (ICD-10-PCS; 2023-02-26)
PROC: 04CK3ZZ Extirpation of Matter from Right Femoral Artery, Percutaneous Approach (ICD-10-PCS; 2023-02-26)
PROC: 047M3Z1 Dilation of Right Popliteal Artery using Drug-Coated Balloon, Percutaneous Approach (ICD-10-PCS; principal; 2023-02-26 08:00)
DX: T82.856A Stenosis of peripheral vascular stent, initial encounter (principal); I70.211 Atherosclerosis of native arteries of extremities with intermittent claudication, right leg; Y99.9 Unspecified external cause status
CPT/HCPCS: 37225; C2623; 76000-TC-FY; 94760; C1760; J1644

== ENCOUNTER 2023-07-31 04:15 | Day surgery (SDC) | payer OTHER ==
[2023-07-29 16:39] VITALS: BMI 29.2
[2023-07-31] MEDS ORDERED: LIDOCAINE HCL/PF 1% SDV 5ML VIAL ONE (07:12)
[2023-07-31] MEDS ORDERED: BUPIVACAINE HCL/PF 0.75% 10 ML VIAL ONE (07:12)
[2023-07-31 12:31] VITALS: RESP 16
[2023-07-31] MEDS ORDERED: ACETAMINOPHEN 500 MG TABLET (FP) PO PRN (12:59)
[2023-07-31] MEDS: BUPIVACAINE HCL/PF 0.75% 10 ML VIAL NR ONE (14:08)
[2023-07-31] MEDS: LIDOCAINE HCL 1% PRESERVATIVE FREE - 30ML VIAL IJ ONE (14:08)
[2023-07-31 14:29] VITALS: BP 154/60; PULSE 78; TEMP 97.6
== END 2023-07-31 14:50 | disposition home or self-care (01) ==
LOC: JASU-SURG 04:15
PROVIDERS: ATTEND Pain Medicine Pain Medicine
PROC: 3E0T33Z Introduction of Anti-inflammatory into Peripheral Nerves and Plexi, Percutaneous Approach (ICD-10-PCS; 2023-07-31)
PROC: 3E0T3BZ Introduction of Anesthetic Agent into Peripheral Nerves and Plexi, Percutaneous Approach (ICD-10-PCS; principal; 2023-07-31 14:00)
DX: M47.816 Spondylosis without myelopathy or radiculopathy, lumbar region (principal)
CPT/HCPCS: 76000-TC-FY

== ENCOUNTER 2023-09-01 04:15 | Day surgery (SDC) | payer OTHER ==
[2023-08-27 16:14] VITALS: BMI 29.2
[2023-09-01] MEDS ORDERED: BUPIVACAINE HCL/PF 0.75% 10 ML VIAL ONE (07:22)
[2023-09-01] MEDS ORDERED: LIDOCAINE HCL/PF 1% SDV 5ML VIAL ONE (07:23)
[2023-09-01] MEDS: LIDOCAINE HCL 1% PRESERVATIVE FREE - 30ML VIAL IJ ONE (08:58)
[2023-09-01] MEDS: BUPIVACAINE HCL/PF 0.75% 10 ML VIAL NR ONE (08:59)
[2023-09-01 09:20] VITALS: BP 136/67; PULSE 66; RESP 18; TEMP 97.8
[2023-09-01] MEDS ORDERED: ACETAMINOPHEN 500 MG TABLET (FP) PO PRN (10:21)
== END 2023-09-01 11:04 | disposition home or self-care (01) ==
LOC: JASU-SURG 04:15
PROVIDERS: ATTEND Pain Medicine Pain Medicine
PROC: 3E0T33Z Introduction of Anti-inflammatory into Peripheral Nerves and Plexi, Percutaneous Approach (ICD-10-PCS; 2023-09-01)
PROC: 3E0T3BZ Introduction of Anesthetic Agent into Peripheral Nerves and Plexi, Percutaneous Approach (ICD-10-PCS; principal; 2023-09-01 08:30)
DX: M47.816 Spondylosis without myelopathy or radiculopathy, lumbar region (principal)
CPT/HCPCS: 76000-TC-FY

== ENCOUNTER 2023-10-01 04:00 | Day surgery (SDC) | payer OTHER ==
[2023-09-25 16:43] VITALS: BMI 29.2
[2023-10-01] MEDS ORDERED: BUPIVACAINE HCL/PF 0.75% 10 ML VIAL ONE (07:27)
[2023-10-01] MEDS ORDERED: DEXAMETHASONE SOD PHOSPHATE 10 MG/1 ML VIAL ONE (07:27)
[2023-10-01] MEDS ORDERED: LIDOCAINE HCL/PF 2% SDV 5ML VIAL ONE (07:27)
[2023-10-01] MEDS ORDERED: LIDOCAINE HCL/PF 1% SDV 5ML VIAL ONE (07:27)
[2023-10-01 14:13] VITALS: BP 159/69; PULSE 85; RESP 20; TEMP 96
[2023-10-01] MEDS ORDERED: ACETAMINOPHEN 500 MG TABLET (FP) PO PRN (15:43)
== END 2023-10-01 14:41 | disposition home or self-care (01) ==
LOC: JASU-SURG 04:00
PROVIDERS: ATTEND Pain Medicine Pain Medicine
PROC: 015B3ZZ Destruction of Lumbar Nerve, Percutaneous Approach (ICD-10-PCS; principal; 2023-10-01 12:30)
DX: M47.816 Spondylosis without myelopathy or radiculopathy, lumbar region (principal)
CPT/HCPCS: 76000-TC-FY; J1100

== ENCOUNTER 2023-11-06 14:06 | Day surgery (SDC) | payer OTHER ==
[2023-11-02 14:51] VITALS: BMI 29.2
[2023-11-06] MEDS: LIDOCAINE 1% P/F 10 MG/ML VIAL INF ONE (15:32)
[2023-11-06] MEDS: LIDOCAINE HCL/PF 2% SDV 5ML VIAL INF ONE (15:32)
[2023-11-06] MEDS: BUPIVACAINE HCL/PF 0.75% 10 ML VIAL NR ONE (15:32)
[2023-11-06] MEDS: DEXAMETHASONE SOD PHOSPHATE 10 MG/1 ML VIAL IVPUSH ONE (15:32)
[2023-11-06 16:34] VITALS: RESP 18
[2023-11-06 16:42] VITALS: BP 140/70; PULSE 77; TEMP 97.4
== END 2023-11-06 16:43 | disposition home or self-care (01) ==
LOC: JASU-SURG 14:06
PROVIDERS: ATTEND Pain Medicine Pain Medicine
PROC: 015B3ZZ Destruction of Lumbar Nerve, Percutaneous Approach (ICD-10-PCS; principal; 2023-11-06 15:29)
DX: M47.816 Spondylosis without myelopathy or radiculopathy, lumbar region (principal)
CPT/HCPCS: 76000-TC-FY; J1100

== ENCOUNTER 2024-02-04 04:10 | Day surgery (SDC) | payer OTHER ==
[2024-02-02 12:37] VITALS: BMI 29.2
[2024-02-04] MEDS ORDERED: ACETAMINOPHEN 500 MG TABLET (FP) PO PRN (08:44)
[2024-02-04 15:29] VITALS: BP 152/55; PULSE 73; RESP 20; TEMP 97.8
== END 2024-02-04 15:55 | disposition home or self-care (01) ==
LOC: JASU-SURG 04:10
PROVIDERS: ATTEND Pain Medicine Pain Medicine
PROC: 3E0R3BZ Introduction of Anesthetic Agent into Spinal Canal, Percutaneous Approach (ICD-10-PCS; 2024-02-04)
PROC: 3E0R33Z Introduction of Anti-inflammatory into Spinal Canal, Percutaneous Approach (ICD-10-PCS; principal; 2024-02-04 15:01)
DX: M54.16 Radiculopathy, lumbar region (principal); M48.061 Spinal stenosis, lumbar region without neurogenic claudication
CPT/HCPCS: 76000-TC-FY

== ENCOUNTER 2024-06-09 06:55 | Day surgery (SDC) | payer OTHER ==
[2024-06-08 16:23] VITALS: BMI 29.2
[2024-06-09] MEDS: LIDOCAINE HCL 1% PRESERVATIVE FREE - 30ML VIAL IJ ONE ×2 (12:22)
[2024-06-09] MEDS: IOHEXOL 180 MG/1 ML ML IJ ONE (12:23)
[2024-06-09] MEDS: DEXAMETHASONE SOD PHOSPHATE 10 MG/1 ML VIAL IVPUSH ONE ×2 (12:24)
[2024-06-09 12:51] VITALS: BP 155/73; PULSE 62; RESP 16; TEMP 97.3
[2024-06-09] MEDS ORDERED: ACETAMINOPHEN 500 MG TABLET (FP) PO PRN (16:48)
== END 2024-06-09 13:25 | disposition home or self-care (01) ==
LOC: JASU-SURG 06:55
PROVIDERS: ATTEND Pain Medicine Pain Medicine
PROC: 3E0R3BZ Introduction of Anesthetic Agent into Spinal Canal, Percutaneous Approach (ICD-10-PCS; 2024-06-09)
PROC: 3E0R33Z Introduction of Anti-inflammatory into Spinal Canal, Percutaneous Approach (ICD-10-PCS; principal; 2024-06-09 11:45)
DX: M54.16 Radiculopathy, lumbar region (principal); M48.061 Spinal stenosis, lumbar region without neurogenic claudication
CPT/HCPCS: 76000-TC-FY; J1100

== ENCOUNTER 2024-07-26 16:48 | Inpatient (IN) | payer OTHER ==
[2024-07-26 17:23] VITALS: RESP 18
[2024-07-26 19:54] VITALS: BMI 31.7
[2024-07-26] MEDS: CARVEDILOL 6.25 MG TABLET (FP) PO SCH (21:11)
[2024-07-27] MEDS ORDERED: LOPERAMIDE HCL 2 MG CAPSULE PO PRN ×2 (09:16→09:25)
[2024-07-27 09:27] LABS: INR 1.08 (0.83-1.09); PROTHROMBIN TIME (PATIENT) 11.9 SEC (9.7-13.0)
[2024-07-27 09:29] LABS: MCHC 31.3 g/dl (32.2-35.5); MEAN CELL VOLUME 88.9 fl (79.4-94.8); MEAN PLT VOLUME 9.9 fl (9.4-12.3); PLATELET COUNT 154 x10^3/uL (182-369); RDW 15.1 % (12.4-16.6)
[2024-07-27] MEDS ORDERED: RISANKIZUMAB RZAA 150 MG/ML IM SCH (09:30)
[2024-07-27] MEDS ORDERED: [UNRECOGNIZED DRUG - OTHER] IM SCH (09:30)
[2024-07-27 09:51] LABS: POTASSIUM 4.6 mmol/L (3.5-5.1)
[2024-07-27 10:06] LABS: ALBUMIN 3.6 g/dl (3.4-5.0)
[2024-07-27 10:09] LABS: MAGNESIUM 1.5 mg/dL (1.8-2.4)
[2024-07-27 10:12] LABS: PHOSPHOROUS 3.4 mg/dL (2.5-4.9)
[2024-07-27 10:13] LABS: BILIRUBIN,TOTAL 0.5 mg/dL (0.2-1)
[2024-07-27] MEDS: PANTOPRAZOLE 40 MG TABLET PO SCH (11:03)
[2024-07-27] MEDS: GABAPENTIN 100 MG CAPSULE PO SCH (11:03)
[2024-07-27] MEDS: CHOLECALCIFEROL (VIT D3) 1,000 UNIT (25 MCG) TABLET PO SCH (11:04)
[2024-07-27] MEDS: ASCORBIC ACID 500 MG TABLET (FP) PO SCH (11:04)
[2024-07-27] MEDS: CLOPIDOGREL BISULFATE 75 MG TABLET (FP) PO SCH (11:06)
[2024-07-27] MEDS: HEPARIN NA (PORCINE) 5,000 UNITS/ML 1ML VIAL SQ SCH (11:07)
[2024-07-27] MEDS: oxyCODONE HCL 5 MG TABLET PO PRN (14:46)
[2024-07-27] MEDS: MAGNESIUM 2GM/50ML STERILE WATER IVPB IVPB ONE (17:02)
[2024-07-28 10:01] LABS: ABSOLUTE IMMATURE GRANULOCYTES 0.07 x10^3/uL (0.0-0.031); BASOPHILS # 0.05 x10^3/uL (0.01-0.08); EOSINOPHIL % 2.4 % (0.7-5.8); EOSINOPHILS # 0.21 x10^3/uL (0.04-0.36); HEMATOCRIT 32.7 % (34.1-44.9); HEMOGLOBIN 10.2 g/dL (11.2-15.7); MCHC 31.2 g/dl (32.2-35.5); MEAN CELL VOLUME 88.4 fl (79.4-94.8); MEAN PLT VOLUME 9.9 fl (9.4-12.3); MONOCYTE # 0.27 x10^3/uL (0.24-0.86); MONOCYTE % 3.1 % (4.7-12.5); PLATELET COUNT 154 x10^3/uL (182-369); RDW 15.2 % (12.4-16.6)
[2024-07-28 10:22] LABS: POTASSIUM 4.3 mmol/L (3.5-5.1)
[2024-07-28 10:47] LABS: CALCIUM 9.7 mg/dL (8.5-10.1)
[2024-07-28 10:48] LABS: BLOOD UREA NITROGEN 51.5 mg/dL (7-18); MAGNESIUM 2.2 mg/dL (1.8-2.4)
[2024-07-28 10:51] LABS: CREATININE 2.3 mg/dL (0.55-1.3)
[2024-07-28 13:03] VITALS: BP 132/75; PULSE 85; TEMP 97.9
== END 2024-07-28 14:31 | disposition home or self-care (01) | DRG 315 ==
LOC: JER 16:48 → JERBED 17:23 → J5S 18:17
PROVIDERS: ADMIT Internal Medicine
DX: T82.856A Stenosis of peripheral vascular stent, initial encounter (principal); K50.90 Crohn's disease, unspecified, without complications; E78.5 Hyperlipidemia, unspecified; I12.9 Hypertensive chronic kidney disease with stage 1 through stage 4 chronic kidney disease, or unspecified chronic kidney disease; N18.9 Chronic kidney disease, unspecified; Y83.8 Other surgical procedures as the cause of abnormal reaction of the patient, or of later complication, without mention of misadventure at the time of the procedure
CPT/HCPCS: 36415; 74176-TC; 80048; 80053; 83735; 84100; 85025; 85027; 85610; 85730; 86850; 86900; 86901; 93005; 93010; 93970-TC; 93971-TC; 99285-25